=== PATIENT | female | born 1975 | race African-American/Black ===

== ENCOUNTER 2017-02-11 23:33 | Emergency (ER) | payer OTHER ==
[~2017-02-11] VITALS: Ht 154.9 cm; Wt 80.0 kg
[2017-02-12] VITALS: BP 135/79; PULSE 90; RESP 18; TEMP 98.3; O2SAT 98
[2017-02-12] MEDS ORDERED: ceFAZolin 2 GM PREMIX 50 ML IV ONE
[2017-02-12] MEDS ORDERED: SODIUM CHLOR 0.9% 1000 ML INJ 1,000 ML IV ONE
[2017-02-12] MEDS ORDERED: TETANUS/DIPHTHERIA TOXOID ADULT 0.5 ML VIAL IM ONE
[2017-02-12] MEDS ORDERED: ATEN25TA PO (00:01)
[2017-02-12 00:04] VITALS: O2SAT 99
[2017-02-12 00:32] LABS: AUTOMATED NEUTROPHIL # 6.2 TH/MM3 (1.8-7.7); BASOPHIL % 0.4 % (0.0-2.0); EOSINOPHIL # 0.1 TH/MM3 (0-0.4); HEMO FLAGS DIFF FINAL; LYMPH % 18.1 % (9.0-44.0); LYMPHOCYTE # 1.5 TH/MM3 (1.0-4.8); MEAN CORPUSCULAR HEMOGLOBIN 25.1 PG (27.0-34.0); MEAN CORPUSCULAR HGB CONC 32.1 % (32.0-36.0); NEUT % 74.5 % (16.0-70.0); PLATELET COUNT 306 TH/MM3 (150-450); RED BLOOD COUNT 3.98 MIL/MM3 (4.00-5.30); RED CELL DISTRIBUTION WIDTH 15.8 % (11.6-17.2); WHITE BLOOD COUNT 8.3 TH/MM3 (4.0-11.0)
[2017-02-12 00:44] LABS: APTT (PATIENT) 22.7 SEC (24.3-30.1); PROTHROMBIN TIME - PATIENT 11.4 SEC (9.8-11.6)
[2017-02-12] MEDS ORDERED: IOHEXOL 350 MG/ML 10 ML VIAL (for RAD DIAG) IV ONE (00:55)
[2017-02-12 00:57] LABS: BICARBONATE 24.7 MEQ/L (21.0-32.0); POTASSIUM 3.7 MEQ/L (3.5-5.1)
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
[2017-02-12] MEDS ORDERED: CEPH-460 PO (02:11)
[2017-02-12] MEDS ORDERED: IBUP-232 PO (02:11)
[2017-02-12] MEDS ORDERED: KETOROLAC TROMETHAMINE 30 MG/ML (IVP) VIAL IV PUSH ONE (02:15)
[2017-02-12 03:14] VITALS: RESP 18
== END 2017-02-12 03:17 | disposition home or self-care (01) ==
LOC: NEPC 23:33
DX: S50.312A Abrasion of left elbow, initial encounter (principal); S80.212A Abrasion, left knee, initial encounter; S80.211A Abrasion, right knee, initial encounter; M25.552 Pain in left hip; M25.551 Pain in right hip; T14.8 Other injury of unspecified body region; I10 Essential (primary) hypertension; V28.4XXA Motorcycle driver injured in noncollision transport accident in traffic accident, initial encounter; Y93.89 Activity, other specified; Y92.410 Unspecified street and highway as the place of occurrence of the external cause; Y99.9 Unspecified external cause status
CPT/HCPCS: 70450; 71260; 72125; 72170; 73080; 73564; 74177; 80048; 85025; 85610; 85730; 86850; 86900; 86901; 90471; 90714; 96365; 96375; 99284; J0690; J1885; J7030; Q9967